=== PATIENT | male | born 1985 | race Caucasian/White ===

== ENCOUNTER 2018-08-29 08:37 | Inpatient (IN) | payer OTHER ==
[2018-08-29 11:07] VITALS: BMI 30.3
--- NOTE | 2018-08-29 14:26 | HP ---
CIWA Score Nausea/Vomitin Muscle Tremors: 2 Anxiety: 4-Mod. Anxious/Guarded Agitation: 0-Normal Activity Paroxysmal Sweats: 2 Orientation: 0-Oriented Tacttile Disturbances: 1-Very Mild Itch/Numbness Auditory Disturbances: 0-None Visual Disturbances: 0-None Headache: 2-Mild CIWA-Ar Total Score: 14 - Admission Criteria OASAS Guidelines: Admission for Medically Managed Detox: Requires at least one of the followin. CIWA greater than 12 2. Seizures within the past 24 hours 3. Delirium tremens within the past 24 hours 4. Hallucinations within the past 24 hours 5. Acute intervention needed for co occurring medical disorder 6. Acute intervention needed for co occurring psychiatric disorder 7. Severe withdrawal that cannot be handled at a lower level of care (continued vomiting, continued diarrhea, abnormal vital signs) requiring intravenous medication and/or fluids 8. Patient presents the following: CIWA greater than 12, Seizures, delirium tremens or hallucinations in the past 12 hours Admission Criteria Met: Admission criteria met Admission ROS S - HPI Chief Complaint: xanax withdrawal symptoms Allergies/Adverse Reactions: Allergies Allergy/AdvReac Type Severity Reaction Status Date / Time No Known Allergies Allergy Verified 08/29/18 10:44 History of Present Illness: Patient is a 33 yo male with hx of polysubstance use is here seeking inpatient detox d/t benzo withdrawal symptoms, patient reports he was evaluated last night at [facility] for chest pain and anxiety after consuming crystal meth (intravenous) and xanax, was given one dose of librium. Patient attempted to detox at [facility] left AMA on 08/20/18. [facility] on methadone maintenance 140 mg qd, last medicated 08/20/18 at [facility] in AM ( D/ T missed doses will start methadone 80 mg today). PMHX: metabolic encephalitis four months ago. Psych: depression and anxiety. Reports reports hx of benzo withdrawal seizure with last episode eight years ago. Exam Limitations: No Limitations - Ebola screening Have you traveled outside of the country in the last 21 days: No (N) Have you had contact with anyone from an Ebola affected area: No Do you have a fever: No - Review of Systems Constitutional: Chills, Diaphoresis, Loss of Appetite, Changes in sleep, Unintentional Wgt. Loss EENT: reports: No Symptoms Reported Respiratory: reports: No Symptoms reported Cardiac: reports: See HPI GI: reports: Diarrhea, Nausea, Poor Appetite, Vomiting : reports: No Symptoms Reported Musculoskeletal: reports: Back Pain Integumentary: reports: No Symptoms Reported Neuro: reports: Headache Endocrine: reports: No Symptoms Reported Hematology: reports: No Symptoms Reported Psychiatric: reports: Orientated x3, Anxious Other Systems: Reviewed and Negative Patient History - Patient Medical History Hx Anemia: No Hx Asthma: No Hx Chronic Obstructive Pulmonary Disease (COPD): No Hx Cancer: No Hx Cardiac Disorders: No Hx Congestive Heart Failure: No Hx Hypertension: No Hx Hypercholesterolemia: No Hx Pacemaker: No HX Cerebrovascular Accident: No Hx Seizures: Yes (8 years ago ) Hx Dementia: No Hx Diabetes: No Hx Gastrointestinal Disorders: No Hx Liver Disease: Yes (elevated liver enzymes, metabolic encephalitis four months ago ) Hx Genitourinary Disorders: No Hx Sexually Transmitted Disorders: No Hx Renal Disease (ESRD): No Hx Thyroid Disease: No Hx Human Immunodeficiency Virus (HIV): No Hx Hepatitis C: No Hx Depression: Yes Hx Suicide Attempt: No Hx Bipolar Disorder: No Hx Schizophrenia: No - Patient Surgical History Past Surgical History: Yes Other Surgical History: 2011 ligament x, 2014 nasal sx - PPD History Previous Implant?: No Documented Results: Negative w/o proof PPD to be Administered?: Yes - Smoking Cessation Smoking history: Never smoked Have you smoked in the past 12 months: No Aproximately how many cigarettes per day: 0 If you are a former smoker, when did you quit?: 2010 Hx Chewing Tobacco Use: No Initiated information on smoking cessation: No - Substance & Tx. History Hx Alcohol Use: Yes Hx Substance Use: Yes Substance Use Type: Tranquilizers Hx Substance Use Treatment: Yes ([facility] on ) - Substances abused Heroin Substance route: Injection Frequency: Daily Amount used: 5-10 bags per day Age of first use: 21 Date of last use: 08/26/18 Alprazolam (Xanax) Substance route: Oral Frequency: Daily Amount used: 6-8 mg/day Age of first use: 21 Date of last use: 08/27/18 Crystal meth Substance route: Injection Frequency: Daily Amount used: 1 gram Age of first use: 33 Date of last use: 08/28/18 Alcohol Substance route: Oral Frequency: 1-2 times per week Amount used: 2 24 oz beers Age of first use: 18 Date of last use: 08/22/18 Family Disease History - Family Disease History Family History: Denies Admission Physical Exam [facility] - Vital Signs Vital Signs: Vital Signs - 24 hr 08/29/18 10:53 Temperature 97.5 F L Pulse Rate 108 H Respiratory 20 Rate Blood Pressure 121/79 - Physical General Appearance: Yes: Disheveled, Mild Distress, Sweating, Anxious HEENTM: Yes: EOMI, Hearing grossly Normal, Normal ENT Inspection, Normocephalic , Normal Voice, LEXI, Pharynx Normal, Tm's normal, Other (dry mucous membranes) Respiratory: Yes: Chest Non-Tender, Lungs Clear, Normal Breath Sounds, No Respiratory Distress, No Accessory Muscle Use Neck: Yes: Within Normal Limits Breast: Yes: Breast Exam Deferred Cardiology: Yes: Regular Rhythm, Regular Rate Abdominal: Yes: Normal Bowel Sounds, Non Tender, Flat, Soft Genitourinary: Yes: Within Normal Limits Back: Yes: Normal Inspection Musculoskeletal: Yes: full range of Motion, Gait Steady, Pelvis Stable Extremities: Yes: Normal Capillary Refill, Normal Inspection, Normal Range of Motion, Non-Tender Neurological: Yes: 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, Fully Oriented, Alert, Motor Strength 5/5, Depressed Affect Integumentary: Yes: Warm, Erythema (right arm upper arm), Diaphoresis, Track Morris Lymphatic: Yes: Within Normal Limits - Diagnostic (1) Cellulitis of right upper arm Current Visit: Yes Status: Acute (2) Opioid dependence on agonist therapy Current Visit: Yes Status: Chronic (3) Alcohol abuse Current Visit: Yes Status: Acute (4) Sedative, hypnotic or anxiolytic dependence with withdrawal, uncomplicated Current Visit: Yes Status: Acute (5) Anxiety Current Visit: Yes Status: Acute (6) Elevated liver enzymes Current Visit: Yes Status: Acute Cleared for Admission S - Detox or Rehab [facility] Level of Care: Medically Managed ([facility]) Inpatient Rehab Admission - Rehab Decision to Admit Inpatient rehab admission?: No
[2018-08-29] MEDS ORDERED: ACETAMINOPHEN 325 MG TABLET (FP) PO PRN ×2 (14:35)
[2018-08-29] MEDS ORDERED: BISMUTH SUBSALICYLATE 262 MG/15 ML BTL PO PRN (14:35)
[2018-08-29] MEDS ORDERED: MAG HYDROX/AL HYDROX/SIMETH 30 ML UNIT-DOSE CUP PO PRN (14:35)
[2018-08-29] MEDS ORDERED: MAGNESIUM CITRATE 300 ML BOTTLE PO PRN (14:35)
[2018-08-29] MEDS ORDERED: METHOCARBAMOL 500 MG TABLET PO PRN (14:35)
[2018-08-29] MEDS ORDERED: IBUPROFEN 400 MG TABLET (FP) PO PRN (14:35)
[2018-08-29] MEDS ORDERED: MAGNESIUM HYDROX 2400MG/30ML ORAL SUSPENSION 30 ML CUP PO PRN (14:35)
[2018-08-29] MEDS ORDERED: LORazepam 1 MG TABLET PO PRN (14:38)
[2018-08-29] MEDS ORDERED: METHADONE HCL 40 MG DISPERSABLE TABLET PO ONE (15:25)
[2018-08-29] MEDS: BACITRACIN 0.9 GM PACKET TP SCH (15:36)
[2018-08-29 16:42] LABS: HEMATOCRIT 47.1 % (35.4-49); HEMOGLOBIN 16.1 GM/dL (11.7-16.9); MCH 29.4 pg (25.7-33.7); MCHC 34.1 g/dl (32.0-35.9); MEAN CELL VOLUME 86.1 fl (80-96); MEAN PLT VOLUME 7.7 fl (7.5-11.1); RBC 5.47 M/mm3 (4.00-5.60); RDW 13.5 % (11.9-15.9); WHITE BLOOD COUNT 9.4 K/mm3 (4.0-10.0)
[2018-08-29 16:48] LABS: ALBUMIN 4.4 g/dl (3.4-5.0); BILIRUBIN,TOTAL 1.1 mg/dL (0.2-1); BLOOD UREA NITROGEN 13.3 mg/dL (7-18); CALCIUM 9.1 mg/dL (8.5-10.1); POTASSIUM 3.8 mmol/L (3.5-5.1); TOT PROT 7.9 g/dl (6.4-8.2)
[2018-08-29] MEDS: LORazepam 2 MG TABLET PO SCH ×2 (16:54→22:07)
[2018-08-29] MEDS: CEPHALEXIN MONOHYDRATE 250 MG CAPSULE (FP) PO SCH ×2 (17:28→23:18)
[2018-08-29] MEDS: MENTHOL/PHENOL 1 EACH UD MM PRN (17:51)
[2018-08-29 18:33] LABS: PLATELET COUNT 281 K/MM3 (134-434)
[2018-08-29] MEDS: THIAMINE HCL 100 MG TABLET (FP) PO SCH (22:07)
[2018-08-29] MEDS: MELATONIN 5 MG TABLETS PO PRN (22:07)
[2018-08-30] MEDS ORDERED: METHADONE HCL 10 MG TABLET ONE ×2 (04:40→09:59)
[2018-08-30] MEDS ORDERED: METHADONE HCL 40 MG DISPERSABLE TABLET ONE ×2 (04:41→09:59)
[2018-08-30] MEDS: CEPHALEXIN MONOHYDRATE 250 MG CAPSULE (FP) PO SCH ×4 (05:12→23:21)
[2018-08-30] MEDS: LORazepam 2 MG TABLET PO SCH ×2 (05:12→10:02)
[2018-08-30] MEDS ORDERED: METHADONE HCL 10 MG TABLET PO ONE ×2 (06:00→08:54)
[2018-08-30] MEDS ORDERED: METHADONE 80 MG, METHADONE 10 MG PO SCH (06:00)
[2018-08-30] MEDS: BACITRACIN 0.9 GM PACKET TP SCH (10:02)
[2018-08-30] MEDS: PRENATAL VITAMINS W/ FOLIC ACID TABLET (FP) PO SCH (10:02)
--- NOTE | 2018-08-30 10:14 | PN ---
S CIWA - CIWA Score Nausea/Vomitin-No Nausea/No Vomiting Muscle Tremors: 2 Anxiety: 2 Agitation: 2 Paroxysmal Sweats: 3 Orientation: 0-Oriented Tacttile Disturbances: 0-None Auditory Disturbances: 0-None Visual Disturbances: 0-None Headache: 2-Mild CIWA-Ar Total Score: 11 S Progress Note (SOAP) Subjective: c/o headache, sweats, anxiety, and shakes. Objective: 08/30/18 10:13 Vital Signs 08/30/18 08/30/18 08/30/18 03:30 06:09 06:30 Temperature 97.8 F Pulse Rate 83 Respiratory 18 18 18 Rate Blood Pressure 106/60 08/30/18 09:25 Temperature 97.5 F L Pulse Rate 71 Respiratory 18 Rate Blood Pressure 112/68 Lab Results WBC 9.4 K/mm3 (4.0-10.0) 08/29/18 14:30 RBC 5.47 M/mm3 (4.00-5.60) 08/29/18 14:30 Hgb 16.1 GM/dL (11.7-16.9) 08/29/18 14:30 Hct 47.1 % (35.4-49) 08/29/18 14:30 MCV 86.1 fl (80-96) 08/29/18 14:30 MCHC 34.1 g/dl (32.0-35.9) 08/29/18 14:30 RDW 13.5 % (11.9-15.9) 08/29/18 14:30 Plt Count 281 K/MM3 (134-434) 08/29/18 14:30 Sodium 140 mmol/L (136-145) 08/29/18 14:30 Potassium 3.8 mmol/L (3.5-5.1) 08/29/18 14:30 Chloride 105 mmol/L (98-107) 08/29/18 14:30 Carbon Dioxide 29 mmol/L (21-32) 08/29/18 14:30 Anion Gap 6 MMOL/L (8-16) L 08/29/18 14:30 BUN 13.3 mg/dL (7-18) 08/29/18 14:30 Creatinine 1.0 mg/dL (0.55-1.3) 08/29/18 14:30 Random Glucose 84 mg/dL (74-106) 08/29/18 14:30 Calcium 9.1 mg/dL (8.5-10.1) 08/29/18 14:30 Labs noted. Assessment: 08/30/18 10:14 AOX3, in no acute distress Full ROM, ambulating in the unit. Withdrawal symptoms. Plan: continue detox. increase hydration.
[2018-08-30] MEDS: LORazepam 1 MG TABLET PO SCH ×2 (17:30→22:01)
--- NOTE | 2018-08-30 18:22 | CONSULT ---
[facility] Psychiatric Consult - Data Date of interview: 08/30/18 Admission source: [facility] Identifying data: First admission to [facility] for this 33 y/o male self-referred for detoxification (methamphetamine, opioid, benzodiazepine). Interviewed at [address] [place] [address]. Patient is single, a father of two, homeless, unemplloyed and reportedly deprived of income. Substance Abuse History: Patient sedated. Details in [facility] report : Smoking history: Never smoked. Have you smoked in the past 12 months: No. Aproximately how many cigarettes per day: 0. If you are a former smoker, when did you quit?: 2010. Hx Chewing Tobacco Use: No. Initiated information on smoking cessation: No. - Substance & Tx. History. Hx Alcohol Use: Yes. Hx Substance Use: Yes. Substance Use Type: Tranquilizers. Hx Substance Use Treatment: Yes ([facility] [place] on ). - Substances abused. Heroin. Substance route: Injection. Frequency: Daily. Amount used: 5-10 bags per day. Age of first use: 21. Date of last use: 08/26/18. Alprazolam ( Xanax). Substance route: Oral. Frequency: Daily. Amount used: 6-8 mg/day. Age of first use: 21. Date of last use: 08/27/18. Crystal meth. Substance route: Injection. Frequency: Daily. Amount used: 1 gram. Age of first use: 33. Date of last use: 08/28/18. Alcohol. Substance route: Oral. Frequency : 1-2 times per week. Amount used: 2 24 oz beers. Age of first use: 18. Date of last use: 08/22/18 Medical History: Patient sedated. History taken from chart : elevated liver enzymes, recent antecedent of metabolic encephalitis (four months ago), remote history of seizures (age [age]) and past surgery for perforated nasal septum ( 2014). Psychiatric History: Patient is drowsy and slurred. Mr Abreu insisted to talk to psychiatrist about his medications (wellbutrin XL + gabapentin). He sees a psychiatrist, Dr Michel ([phone]) at a clinic in [place]. Currently maintained on methadone (140 mg/day) at the [facility] program in [facility]. Patient denies history of suicide attempts. Physical/Sexual Abuse/Trauma History: Not discussed. Additional Comment: No toxicology available for review. Mental Status Exam - Mental Status Exam Alert and Oriented to: Place, Person Cognitive Function: Impaired (sedated due to medications) Patient Appearance: Unkempt, Disheveled (overweight, disheveled) Mood: Nervous, Withdrawn, Anxious Affect: Mood Congruent, Constricted Patient Behavior: Sedated (mildly sedated, somnolent during interview ; needs prompting), Fatigued Speech Pattern: Delayed, Slurred, Garbled (at times ) Voice Loudness: Moderately Soft/Quiet Thought Process: Disoriented Thought Disorder: Not Present Hallucinations: Denies Suicidal Ideation: Denies Homicidal Ideation: Denies Insight/Judgement: Poor Sleep: Well Gait/Station: Other (unsteady) Psychiatric Findings - Problem List ([place] 1, 2,3) (1) Sedated due to medication Current Visit: Yes Status: Acute (2) Sedative, hypnotic or anxiolytic dependence with withdrawal, uncomplicated Current Visit: Yes Status: Acute (3) Opioid dependence on agonist therapy Current Visit: Yes Status: Chronic (4) Alcohol abuse Current Visit: Yes Status: Chronic - Initial Treatment Plan Initial Treatment Plan: Falls precautions. Will hold wellbutrin and gabapentin. Detoxification in progress.
[2018-08-30] MEDS: MENTHOL/PHENOL 1 EACH UD MM PRN (20:43)
[2018-08-30] MEDS: THIAMINE HCL 100 MG TABLET (FP) PO SCH (22:01)
[2018-08-30] MEDS: MELATONIN 5 MG TABLETS PO PRN (22:01)
[2018-08-31] MEDS ORDERED: METHADONE HCL 40 MG DISPERSABLE TABLET ONE (04:08)
[2018-08-31] MEDS ORDERED: METHADONE HCL 10 MG TABLET ONE (04:08)
[2018-08-31] MEDS: LORazepam 1 MG TABLET PO SCH ×2 (05:41→10:08)
[2018-08-31] MEDS: CEPHALEXIN MONOHYDRATE 250 MG CAPSULE (FP) PO SCH ×4 (05:41→23:06)
[2018-08-31] MEDS ORDERED: METHADONE HCL 10 MG TABLET PO ONE (06:00)
[2018-08-31] MEDS ORDERED: METHADONE 20 MG, METHADONE 80 MG PO ONE (06:00)
[2018-08-31] MEDS: BACITRACIN 0.9 GM PACKET TP SCH (10:07)
[2018-08-31] MEDS: PRENATAL VITAMINS W/ FOLIC ACID TABLET (FP) PO SCH (10:07)
--- NOTE | 2018-08-31 10:51 | PN ---
S CIWA - CIWA Score Nausea/Vomitin Muscle Tremors: 2 Anxiety: 2 Agitation: 2 Paroxysmal Sweats: 1-Minimal Palms Moist Orientation: 0-Oriented Tacttile Disturbances: 1-Very Mild Itch/Numbness Auditory Disturbances: 2-Mild Harshness/Frighten Visual Disturbances: 0-None Headache: 2-Mild CIWA-Ar Total Score: 14 [facility] Progress Note (SOAP) Subjective: co poor sleep anxiety and some shakiness Objective: 08/31/18 10:50 Laboratory Tests 08/29/18 08/29/18 08/29/18 14:30 14:30 14:30 WBC 9.4 RBC 5.47 Hgb 16.1 Hct 47.1 MCV 86.1 MCH 29.4 MCHC 34.1 RDW 13.5 Plt Count 281 MPV 7.7 Sodium 140 Potassium 3.8 Chloride 105 Carbon Dioxide 29 Anion Gap 6 L BUN 13.3 Creatinine 1.0 Est GFR (CKD-EPI)AfAm 114.11 Est GFR (CKD-EPI)NonAf 98.45 Random Glucose 84 Calcium 9.1 Total Bilirubin 1.1 H AST 20 ALT 41 Alkaline Phosphatase 113 Total Protein 7.9 Albumin 4.4 RPR Titer Nonreactive Vital Signs - 24 hr 08/30/18 08/30/18 08/30/18 13:22 17:38 21:24 Temperature 97.1 F L 96.9 F L 97.0 F L Pulse Rate 52 L 63 65 Respiratory 18 16 16 Rate Blood Pressure 128/82 127/90 109/74 08/31/18 08/31/18 08/31/18 03:30 06:27 06:30 Temperature 96.8 F L Pulse Rate Respiratory 18 67 H 18 Rate Blood Pressure 101/58 L 08/31/18 09:14 Temperature 97.3 F L Pulse Rate 77 Respiratory 18 Rate Blood Pressure 111/72 vs and labs noted Assessment: 08/31/18 10:51 alcohol dependence with withdrawal Plan: continue detox protocol cont adjuncts discussed symptom prn management
--- NOTE | 2018-08-31 15:01 | CONSULT ---
[facility] Psychiatric Consult - Data Date of interview: 08/31/18 ([facility]) Admission source: [facility] Identifying data: Mr Abreu is a 33 years old single , father of 2 children, unemployed with no source of income, homeless seeking alcohol, opioid , benzo and amphetamine Substance Abuse History: Reports history of alcohol, heroin, xanax and crystal meth use. Refer to addiction counselor's note for further information Medical History: Significant for history of withdrawal seizure, surgeries for fracture of nose and repair of ligament left shoulder. Patient is on methadone 140 mg/day from [facility]. Psychiatric History: Reports that his first psychiatric contact was in 2000 when his mother . Claiims he saw a psychiatrist, diagnosed with depression and anxiety and started on Xanax. Reports that he took medication for 5 years. Currently he is prescribed psychotropic medications by Dr Michel, a private psychiatrist in [place] that he has been seeing for the last 7 years. He is currently prescribed Wellbutrin XL 450 mg/day, Effexoe ER 75 mg/day, Gabapentin 800 mg/qid, Vistaril 50 mg/hs and Clonidine 0.1 mg/bid. Reports one previous psychiatric hospitalization at [facility] in [place]. Denies previous suicidal attempt. At present, denies depressive and anxiety symptoms. S /H ideations. However, reports sleeping poorly Physical/Sexual Abuse/Trauma History: Denies history of emotional, physical and sexual abuse as well as DV relationship. No service Additional Comment: Reports history of 3 previous arrests including one felony convictiom. Reports being on probation Mental Status Exam - Mental Status Exam Alert and Oriented to: Time, Place, Person Cognitive Function: Fair Patient Appearance: Well Groomed Mood: Hopeful, Euthymic Patient Behavior: Cooperative Speech Pattern: Clear Voice Loudness: Normal Thought Process: Intact, Goal Oriented Hallucinations: Denies Suicidal Ideation: Denies Homicidal Ideation: Denies Insight/Judgement: Poor Sleep: Poorly Appetite: Good Muscle strength/Tone: Normal Gait/Station: Normal Psychiatric Findings - Problem List ([place] 1, 2,3) (1) Anxiety disorder Current Visit: Yes Status: Chronic (2) Substance-induced sleep disorder Current Visit: Yes Status: Acute (3) Sedative, hypnotic or anxiolytic dependence with withdrawal, uncomplicated Current Visit: Yes Status: Acute (4) Amphetamine dependence Current Visit: Yes Status: Acute (5) Alcohol abuse Current Visit: Yes Status: Acute (6) Opioid dependence on agonist therapy Current Visit: Yes Status: Chronic (7) Drug withdrawal seizure Current Visit: Yes Status: Acute - Initial Treatment Plan Initial Treatment Plan: 1) Continue Wellbutrin XL 450 mg po daily and Gabapentin 800 mg po QID. 2) Start Vistaril 50 mg po HS prn for insmonia
[2018-08-31] MEDS ORDERED: hydrOXYzine PAMOATE 50 MG CAPSULE (FP) PO PRN (15:11)
--- NOTE | 2018-08-31 16:57 | EKG ---
Test Reason : Blood Pressure : / mmHG Vent. Rate : 084 BPM Atrial Rate : 084 BPM P-R Int : 154 ms QRS Dur : 104 ms QT Int : 380 ms P-R-T Axes : 050 -20 025 degrees QTc Int : 449 ms NORMAL SINUS RHYTHM NORMAL ECG NO PREVIOUS ECGS AVAILABLE Confirmed by MD AMRIAN, DENNIS ([id number]) on 08/31/2018 4:57:09 PM Referred By: Confirmed By:DENNIS FONSECA MD
[2018-08-31] MEDS ORDERED: LORazepam 0.5 MG TABLET PO PRN (17:00)
[2018-08-31] MEDS: LORazepam 0.5 MG TABLET PO SCH ×2 (17:17→22:34)
[2018-08-31] MEDS: GABAPENTIN 400 MG CAPSULE (FP) PO SCH ×2 (17:17→22:34)
[2018-08-31 22:33] LABS: PH,URINE 5.5 (5.0-8.0); URINE APPEARANCE TURBID; URINE BILIRUBIN NEGATIVE (NEGATIVE); URINE COLOR DK YELLOW; URINE GLUCOSE (UA) NEGATIVE (NEGATIVE); URINE KETONE TRACE (NEGATIVE); URINE LEUK ESTERASE NEGATIVE (NEGATIVE); URINE NITRITE NEGATIVE (NEGATIVE); URINE PROTEIN NEGATIVE (NEGATIVE)
[2018-08-31] MEDS: MELATONIN 5 MG TABLETS PO PRN (22:34)
[2018-08-31] MEDS: THIAMINE HCL 100 MG TABLET (FP) PO SCH (22:34)
[2018-09-01] MEDS ORDERED: METHADONE HCL 10 MG TABLET ONE (04:55)
[2018-09-01] MEDS ORDERED: METHADONE HCL 40 MG DISPERSABLE TABLET ONE (04:55)
[2018-09-01] MEDS: CEPHALEXIN MONOHYDRATE 250 MG CAPSULE (FP) PO SCH (05:16)
[2018-09-01] MEDS: LORazepam 0.5 MG TABLET PO SCH (05:16)
[2018-09-01] MEDS ORDERED: METHADONE PO SCH (06:00)
[2018-09-01] MEDS ORDERED: METHADONE HCL 10 MG TABLET PO SCH (06:00)
[2018-09-01] MEDS ORDERED: NICOTINE POLACRILEX 2 MG GUM BUC PRN (09:00)
[2018-09-01 09:18] VITALS: BP 127/79; PULSE 78; TEMP 98.8
[2018-09-01] MEDS: BACITRACIN 0.9 GM PACKET TP SCH (10:33)
[2018-09-01] MEDS: GABAPENTIN 400 MG CAPSULE (FP) PO SCH (10:33)
[2018-09-01] MEDS: PRENATAL VITAMINS W/ FOLIC ACID TABLET (FP) PO SCH (10:35)
--- NOTE | 2018-09-01 16:47 | DS ---
[facility] Detox Discharge Summary Admission Date: 08/29/18 Discharge Date: 09/01/18 - History Present History: Alcohol Dependence, Opioid Dependence, Sedative Dependence, MMTP Additional Comments: PATIENT GOING TO [facility] ([place], [place]) FOR AFTERCARE. PATIENT WAS DISCHARGED FORM DETOX UNIT IN STABLE MEDICAL CONDITION. Pertinent Past History: Anxiety, Depression, History Of Elevated Liver Enzymes, Cellulitis Of Right arm , M.M.T.P., History Of Metabolic Encephalitis, History Of Seizure Due To Benzodiazepine withdrawal. - Physical Exam Results Vital Signs: Vital Signs Temperature 98.8 F 09/01/18 09:18 Pulse Rate 78 09/01/18 09:18 Respiratory Rate 20 09/01/18 09:18 Blood Pressure 127/79 09/01/18 09:18 O2 Sat by Pulse Oximetry (%) Pertinent Admission Physical Exam Findings: WITHDRAWAL SYMPTOMS. Laboratory Tests 08/29/18 08/29/18 08/29/18 14:30 14:30 14:30 WBC 9.4 RBC 5.47 Hgb 16.1 Hct 47.1 MCV 86.1 MCH 29.4 MCHC 34.1 RDW 13.5 Plt Count 281 MPV 7.7 Sodium 140 Potassium 3.8 Chloride 105 Carbon Dioxide 29 Anion Gap 6 L BUN 13.3 Creatinine 1.0 Est GFR (CKD-EPI)AfAm 114.11 Est GFR (CKD-EPI)NonAf 98.45 Random Glucose 84 Calcium 9.1 Total Bilirubin 1.1 H AST 20 ALT 41 Alkaline Phosphatase 113 Total Protein 7.9 Albumin 4.4 Urine Color Urine Appearance Urine pH Ur Specific [place] Urine Protein Urine Glucose (UA) Urine Ketones Urine Blood Urine Nitrite Urine Bilirubin Urine Urobilinogen Ur Leukocyte Esterase RPR Titer Nonreactive 08/31/18 16:00 WBC RBC Hgb Hct MCV MCH MCHC RDW Plt Count MPV Sodium Potassium Chloride Carbon Dioxide Anion Gap BUN Creatinine Est GFR (CKD-EPI)AfAm Est GFR (CKD-EPI)NonAf Random Glucose Calcium Total Bilirubin AST ALT Alkaline Phosphatase Total Protein Albumin Urine Color Dk yellow Urine Appearance Turbid Urine pH 5.5 Ur Specific [place] 1.034 Urine Protein Negative Urine Glucose (UA) Negative Urine Ketones Trace H Urine Blood Negative Urine Nitrite Negative Urine Bilirubin Negative Urine Urobilinogen 1.0 Ur Leukocyte Esterase Negative RPR Titer LABS NOTED. - Treatment Hospital Course: Detox Protocol Followed, Detoxed Safely, Responded well, Discharged Condition Good, Rehab Referral Accepted Patient has Accepted a Rehab Referral to: [facility] ([place], [place]). - Medication Discharge Medications: Ambulatory Orders Gabapentin mg PO 08/29/18 Wellbutrin Xl - 08/29/18 - Diagnosis (1) Alcohol abuse Status: Acute (2) Anxiety Status: Acute (3) Cellulitis of right upper arm Status: Acute (4) Elevated liver enzymes Status: Acute (5) Sedative, hypnotic or anxiolytic dependence with withdrawal, uncomplicated Status: Acute (6) Opioid dependence on agonist therapy Status: Chronic (7) Sedated due to medication Status: Acute - AMA Did Patient Leave Against Medical Advice: No
== END 2018-09-01 12:46 | disposition home or self-care (01) | DRG 773 ==
LOC: YASAS 08:37 → Y3N 14:31
PROVIDERS: ADMIT Surgery; ATTEND Surgery
PROC: HZ2ZZZZ Detoxification Services for Substance Abuse Treatment (ICD-10-PCS; principal; 2018-08-29)
DX: F13.230 Sedative, hypnotic or anxiolytic dependence with withdrawal, uncomplicated (principal); F11.20 Opioid dependence, uncomplicated; F15.20 Other stimulant dependence, uncomplicated; F10.10 Alcohol abuse, uncomplicated; F41.9 Anxiety disorder, unspecified; F19.282 Other psychoactive substance dependence with psychoactive substance-induced sleep disorder; R94.5 Abnormal results of liver function studies; L03.113 Cellulitis of right upper limb; Z86.69 Personal history of other diseases of the nervous system and sense organs
CPT/HCPCS: 36415; 80053; 81003; 85027; 86593; 86803; 93005; 93010

== ENCOUNTER 2018-10-21 12:45 | Inpatient (IN) | payer OTHER ==
[2018-10-21 13:13] VITALS: BMI 29.7
--- NOTE | 2018-10-21 14:46 | HP ---
CIWA Score Nausea/Vomitin-Mild Nausea/No Vomiting Muscle Tremors: 3 Anxiety: 3 Agitation: 3 Paroxysmal Sweats: 3 Orientation: 0-Oriented Tacttile Disturbances: 0-None Auditory Disturbances: 0-None Visual Disturbances: 0-None Headache: 0-None Present CIWA-Ar Total Score: 13 - Admission Criteria OASAS Guidelines: Admission for Medically Managed Detox: Requires at least one of the followin. CIWA greater than 12 2. Seizures within the past 24 hours 3. Delirium tremens within the past 24 hours 4. Hallucinations within the past 24 hours 5. Acute intervention needed for co occurring medical disorder 6. Acute intervention needed for co occurring psychiatric disorder 7. Severe withdrawal that cannot be handled at a lower level of care (continued vomiting, continued diarrhea, abnormal vital signs) requiring intravenous medication and/or fluids 8. Admission ROS [facility] Chief Complaint: xanax withdrawal Allergies/Adverse Reactions: Allergies Allergy/AdvReac Type Severity Reaction Status Date / Time No Known Allergies Allergy Verified 10/21/18 12:57 History of Present Illness: 33 yo with h/o anxiety and opioid use disorder, noted to be stumbling in the streets on his way to [facility] for detox/rehab. He was seen by the police and taken to [facility]. There he requested detox for benzo use disorder. Pt was referred here. Pt was referred to [facility] by mail officer. Pt lives with and 2 kids in [place] Pt has PCP and is good with current medications Xanax- pt has been using this since age 16, first prescribed when his mother from opioid overdose In methadone program 90mg/day DUR- no controlled substances - Ebola screening Have you traveled outside of the country in the last 21 days: No Have you had contact with anyone from an Ebola affected area: No Do you have a fever: No - Review of Systems Constitutional: No Symptoms Reported EENT: reports: No Symptoms Reported Respiratory: reports: No Symptoms reported Cardiac: reports: No Symptoms Reported GI: reports: No Symptoms Reported : reports: No Symptoms Reported Musculoskeletal: reports: No Symptoms Reported Integumentary: reports: No Symptoms Reported Neuro: reports: No Symptoms reported Endocrine: reports: No Symptoms Reported Hematology: reports: No Symptoms Reported Psychiatric: reports: No Sypmtoms Reported Other Systems: Reviewed and Negative Patient History - Patient Medical History Hx Anemia: No Hx Asthma: No Hx Chronic Obstructive Pulmonary Disease (COPD): No Hx Cancer: No Hx Cardiac Disorders: No Hx Congestive Heart Failure: No Hx Hypertension: No Hx Hypercholesterolemia: No Hx Pacemaker: No HX Cerebrovascular Accident: No Hx Seizures: Yes (8 years ago ) Hx Dementia: No Hx Diabetes: No Hx Gastrointestinal Disorders: No Hx Liver Disease: Yes (elevated liver enzymes, metabolic encephalitis four months ago ) Hx Genitourinary Disorders: No Hx Sexually Transmitted Disorders: No Hx Renal Disease (ESRD): No Hx Thyroid Disease: No Hx Human Immunodeficiency Virus (HIV): No Hx Hepatitis C: Yes (but told he as cured) Hx Depression: Yes Hx Suicide Attempt: No Hx Bipolar Disorder: No Hx Schizophrenia: No - Patient Surgical History Past Surgical History: Yes Hx Appendectomy: Yes (2005) Hx Orthopedic Surgery: Yes (L SHOULDER SX IN 2011) Other Surgical History: 2011 ligament x, 2014 nasal sx - PPD History Date: 08/31/18 - Smoking Cessation Smoking history: Never smoked Have you smoked in the past 12 months: No Aproximately how many cigarettes per day: 0 If you are a former smoker, when did you quit?: 2010 Hx Chewing Tobacco Use: No Initiated information on smoking cessation: No 'Breaking Loose' booklet given: 10/21/18 - Substance & Tx. History Hx Substance Use: Yes Substance Use Type: Heroin, Opiates - Substances abused Heroin Substance route: Injection Frequency: Daily Amount used: 5-10 bags per day Age of first use: 21 Date of last use: 08/26/18 Alprazolam (Xanax) Substance route: Oral Frequency: Daily Amount used: 5-10 (2mg)/day Age of first use: 16 Date of last use: 10/19/18 Crystal meth Other (specify): adderall Frequency: Daily Date of last use: 08/28/18 Alcohol Substance route: Oral Frequency: 1-2 times per week Amount used: 2 24 oz beers Age of first use: 18 Date of last use: 08/22/18 Family Disease History - Family Disease History Family Disease History: Other: Mother (opioid) Admission Physical Exam [facility] - Vital Signs Vital Signs: Vital Signs - 24 hr 10/21/18 10/21/18 13:07 14:04 Temperature 68.2 F L 68.2 F L Pulse Rate 74 74 Respiratory 18 18 Rate Blood Pressure 128/88 128/88 - Physical General Appearance: Yes: Within Normal Limits, Mild Distress HEENTM: Yes: Within Normal Limits, EOMI, Hearing grossly Normal, LEXI Respiratory: Yes: Within Normal Limits, Chest Non-Tender, Lungs Clear Neck: Yes: Within Normal Limits, No masses,lesions,Nodules Cardiology: Yes: Within Normal Limits Abdominal: Yes: Within Normal Limits Genitourinary: Yes: Within Normal Limits Back: Yes: Within Normal Limits Musculoskeletal: Yes: Within Normal Limits Extremities: Yes: Within Normal Limits Neurological: Yes: Within Normal Limits, yard specialist II-XII NML intact, Fully Oriented Integumentary: Yes: Within Normal Limits, Normal Color Lymphatic: Yes: Within Normal Limits - Diagnostic (1) Alcohol abuse Current Visit: No Status: Acute (2) Amphetamine dependence Current Visit: No Status: Acute (3) Anxiety Current Visit: No Status: Acute (4) Sedative, hypnotic or anxiolytic dependence with withdrawal, uncomplicated Current Visit: No Status: Acute (5) Opioid dependence on agonist therapy Current Visit: No Status: Chronic Breathalyzer - Breathalyzer Breathalyzer: 0 Urine Drug Screen - Test Device Lot number: [id number] Expiration date: 07/15/20 - Control Is test valid?: Yes - Results Drug screen NEGATIVE: No Urine drug screen results: MET-Methamphetamine, AMP-Amphetamines, FEN-Fentanyl, MOP-Opiates, OXY-Oxycodone, MTD-Methadone, BZO-Benzodiazepines, MDMA-Ecstasy Inpatient Rehab Admission - Rehab Decision to Admit Inpatient rehab admission?: No
[2018-10-21] MEDS ORDERED: MAG HYDROX/AL HYDROX/SIMETH 30 ML UNIT-DOSE CUP PO PRN (15:17)
[2018-10-21] MEDS ORDERED: BISMUTH SUBSALICYLATE 524 MG/30 ML UD PO PRN (15:17)
[2018-10-21] MEDS ORDERED: ONDANSETRON *ODT* 4 MG TABLET SL PRN (15:17)
[2018-10-21] MEDS ORDERED: MENTHOL/PHENOL 1 EACH UD MM PRN (15:17)
[2018-10-21] MEDS ORDERED: MAGNESIUM HYDROX 2400MG/30ML ORAL SUSPENSION 30 ML CUP PO PRN (15:17)
[2018-10-21] MEDS ORDERED: ACETAMINOPHEN 325 MG TABLET (FP) PO PRN ×2 (15:17)
[2018-10-21] MEDS ORDERED: IBUPROFEN 400 MG TABLET (FP) PO PRN (15:17)
[2018-10-21] MEDS ORDERED: METHOCARBAMOL 500 MG TABLET PO PRN (15:17)
[2018-10-21] MEDS ORDERED: MAGNESIUM CITRATE 300 ML BOTTLE PO PRN (15:17)
[2018-10-21] MEDS ORDERED: hydrOXYzine PAMOATE 25 MG CAPSULE (FP) PO PRN (15:17)
[2018-10-21] MEDS ORDERED: diazePAM 5 MG TABLET PO ONE (16:00)
[2018-10-21] MEDS: GABAPENTIN 400 MG CAPSULE (FP) PO SCH ×2 (18:27→22:17)
[2018-10-21] MEDS: diazePAM 5 MG TABLET PO PRN (18:27)
[2018-10-21] MEDS ORDERED: METHADONE HCL 10 MG TABLET PO ONE (18:49)
[2018-10-21] MEDS ORDERED: METHADONE 80 MG, METHADONE 10 MG PO ONE (19:15)
[2018-10-21] MEDS ORDERED: METHADONE HCL 10 MG TABLET ONE (19:35)
[2018-10-21] MEDS ORDERED: METHADONE HCL 40 MG DISPERSABLE TABLET ONE (19:36)
[2018-10-21] MEDS: diazePAM 5 MG TABLET PO SCH (22:17)
[2018-10-21] MEDS: THIAMINE HCL 100 MG TABLET (FP) PO SCH (22:17)
[2018-10-21] MEDS: NICOTINE POLACRILEX 2 MG GUM BUC PRN (23:12)
[2018-10-21] MEDS: MELATONIN 5 MG TABLETS PO PRN (23:13)
[2018-10-22] MEDS ORDERED: METHADONE HCL 40 MG DISPERSABLE TABLET ONE (04:38)
[2018-10-22] MEDS ORDERED: METHADONE HCL 10 MG TABLET ONE (04:38)
[2018-10-22] MEDS: diazePAM 5 MG TABLET PO SCH ×3 (05:46→22:14)
[2018-10-22] MEDS: METHADONE 80 MG, METHADONE 10 MG PO SCH (05:46)
[2018-10-22] MEDS ORDERED: METHADONE HCL 10 MG TABLET PO SCH (06:00)
--- NOTE | 2018-10-22 08:28 | CONSULT ---
[facility] Psychiatric Consult - Data Date of interview: 10/22/18 Admission source: Self-referred Identifying data: Mr Abreu is a 33 years old single , father of 2 children, unemployed with no source of income, living with family seeking alcohol, opioid, benzodiazepine and amphetamine Substance Abuse History: Reports history of alcohol, heroin, xanax and crystal meth use. Refer to addiction counselor's note for further information Medical History: Significant for history of withdrawal seizure, surgeries for fracture of nose and repair of ligament left shoulder. Patient is on methadone 90 mg/day from [facility]. Psychiatric History: Reports that his first psychiatric contact was in 2000 when his mother . Claims he saw a psychiatrist, diagnosed with depression and anxiety and started on Xanax. Reports that he took medication for 5 years. Currently his psychotropic medications is prescribed by his family physician. He is currently prescribed Wellbutrin XL 450 mg/day, Gabapentin 800 mg/qid, Vistaril 100 mg/hs and Clonidine 0.1 mg/bid. External medication history shows scripts from Dr Stuart for Wellbutrin XL 300 mg/day#30, Wellbutrin XL 150 mg/day#30, Gababentin 800 mg/qid#56, Effexoer ER 150 mg/day#30, Vistaril 50 mg/hs#30 filled at [facility] pharmacy on 09/12/18. When confronted about above, he said that he was as at [facility] for rehab. He also said that he no longer takes Effexor. Reports one previous psychiatric hospitalization at [facility] in [place] in 2018 due to psychosis induced Amphetamone accidental overdose. Denies previous suicidal attempt. At present, denies depressive and anxiety symptoms. S/H ideations. However, reports sleeping poorly Physical/Sexual Abuse/Trauma History: Denies history of emotional, physical and sexual abuse as well as DV relationship. No service Additional Comment: Reports history of 3 previous arrests including one felony convictiom. Reports being on probation Mental Status Exam - Mental Status Exam Alert and Oriented to: Time, Person Cognitive Function: Fair Patient Appearance: Well Groomed Mood: Anxious Affect: Appropriate Patient Behavior: Cooperative Speech Pattern: Clear Voice Loudness: Normal Thought Process: Intact, Goal Oriented Hallucinations: Denies Suicidal Ideation: Denies Homicidal Ideation: Denies Insight/Judgement: Poor Sleep: Poorly Appetite: Good Muscle strength/Tone: Normal Gait/Station: Normal Psychiatric Findings - Problem List ([place] 1, 2,3) (1) Anxiety disorder Current Visit: No Status: Chronic (2) Substance-induced anxiety disorder Current Visit: Yes Status: Acute (3) Substance-induced sleep disorder Current Visit: Yes Status: Acute (4) Sedative, hypnotic or anxiolytic dependence with withdrawal, uncomplicated Current Visit: No Status: Acute (5) Amphetamine dependence Current Visit: No Status: Acute (6) Alcohol abuse Current Visit: No Status: Acute (7) Opioid dependence on agonist therapy Current Visit: No Status: Chronic (8) Drug withdrawal seizure Current Visit: No Status: Resolved (9) Hepatitis C Current Visit: Yes Status: Resolved - Initial Treatment Plan Initial Treatment Plan: 1) Continue Wellbutrin XL 450 mg po daily, Gabapentin 800 mg po QID. 2) Start Vistaril 50 mg po Q 4hrs prn for anxiety. 3) Continue inpatient detoxification
[2018-10-22] MEDS: diazePAM 5 MG TABLET PO PRN ×2 (09:16→17:39)
[2018-10-22] MEDS: PRENATAL VITAMINS W/ FOLIC ACID TABLET (FP) PO SCH (10:04)
[2018-10-22] MEDS: GABAPENTIN 400 MG CAPSULE (FP) PO SCH ×4 (10:04→22:14)
[2018-10-22] MEDS: NICOTINE POLACRILEX 2 MG GUM BUC PRN ×2 (10:06→19:04)
[2018-10-22 11:18] LABS: ALBUMIN 3.2 g/dl (3.4-5.0); BILIRUBIN,TOTAL 0.3 mg/dL (0.2-1); CALCIUM 8.1 mg/dL (8.5-10.1); CREATININE 0.8 mg/dL (0.55-1.3); POTASSIUM 3.7 mmol/L (3.5-5.1); TOT PROT 5.9 g/dl (6.4-8.2)
[2018-10-22 11:50] LABS: HEMATOCRIT 39.2 % (35.4-49); HEMOGLOBIN 13.2 GM/dL (11.7-16.9); MCH 28.5 pg (25.7-33.7); MCHC 33.7 g/dl (32.0-35.9); MEAN CELL VOLUME 84.4 fl (80-96); MEAN PLT VOLUME 7.9 fl (7.5-11.1); PLATELET COUNT 196 K/MM3 (134-434); RBC 4.64 M/mm3 (4.00-5.60); RDW 13.3 % (11.9-15.9); WHITE BLOOD COUNT 3.2 K/mm3 (4.0-10.0)
[2018-10-22] MEDS: hydrOXYzine PAMOATE 50 MG CAPSULE (FP) PO PRN ×2 (12:12→22:15)
--- NOTE | 2018-10-22 15:23 | PN ---
S CIWA - CIWA Score Nausea/Vomitin-No Nausea/No Vomiting Muscle Tremors: 3 Anxiety: 4-Mod. Anxious/Guarded Agitation: 3 Paroxysmal Sweats: 2 Orientation: 0-Oriented Tacttile Disturbances: 1-Very Mild Itch/Numbness Auditory Disturbances: 0-None Visual Disturbances: 1-Very Mild Sensitivity Headache: 0-None Present CIWA-Ar Total Score: 14 BHS Progress Note (SOAP) Subjective: Tremors, Anxious, Sweating. Objective: PATIENT A & O X 3, OBSERVED AMBULATING ON UNIT UNASSISTED. IN NO ACUTE DISTRESS. 10/22/18 15:26 Vital Signs Temperature 96.6 F L 10/22/18 13:29 Pulse Rate 65 10/22/18 13:29 Respiratory Rate 18 10/22/18 13:29 Blood Pressure 127/72 10/22/18 13:29 O2 Sat by Pulse Oximetry (%) Laboratory Tests 10/22/18 10/22/18 10/22/18 07:00 07:00 07:00 WBC 3.2 L RBC 4.64 Hgb 13.2 Hct 39.2 D MCV 84.4 MCH 28.5 MCHC 33.7 RDW 13.3 Plt Count 196 D MPV 7.9 Sodium 140 Potassium 3.7 Chloride 105 Carbon Dioxide 32 Anion Gap 3 L BUN 8.0 Creatinine 0.8 Est GFR (CKD-EPI)AfAm 136.03 Est GFR (CKD-EPI)NonAf 117.37 Random Glucose 92 Calcium 8.1 L Total Bilirubin 0.3 AST 37 ALT 82 H Alkaline Phosphatase 104 Total Protein 5.9 L Albumin 3.2 L RPR Titer Nonreactive LABS NOTED. Assessment: 10/22/18 15:27 WITHDRAWAL SYMPTOMS. ELEVATED ALT LEVEL. Plan: CONTINUE DETOX. INCREASE DAILY PO WATER INTAKE.
[2018-10-22] MEDS: MELATONIN 5 MG TABLETS PO PRN (22:14)
[2018-10-22] MEDS: THIAMINE HCL 100 MG TABLET (FP) PO SCH (22:14)
[2018-10-23] MEDS ORDERED: METHADONE HCL 10 MG TABLET ONE (04:42)
[2018-10-23] MEDS ORDERED: METHADONE HCL 40 MG DISPERSABLE TABLET ONE (04:43)
[2018-10-23] MEDS: diazePAM 5 MG TABLET PO SCH ×2 (05:17→17:21)
[2018-10-23] MEDS: METHADONE 80 MG, METHADONE 10 MG PO SCH (05:17)
[2018-10-23] MEDS: diazePAM 5 MG TABLET PO PRN ×3 (08:48→19:00)
[2018-10-23] MEDS: PRENATAL VITAMINS W/ FOLIC ACID TABLET (FP) PO SCH (10:12)
[2018-10-23] MEDS: GABAPENTIN 400 MG CAPSULE (FP) PO SCH ×4 (10:12→22:05)
[2018-10-23] MEDS: NICOTINE POLACRILEX 2 MG GUM BUC PRN ×3 (10:14→19:00)
--- NOTE | 2018-10-23 15:00 | PN ---
S CIWA - CIWA Score Nausea/Vomitin-No Nausea/No Vomiting Muscle Tremors: None Anxiety: 3 Agitation: 1-Slight > Activity Paroxysmal Sweats: 2 Orientation: 0-Oriented Tacttile Disturbances: 0-None Auditory Disturbances: 0-None Visual Disturbances: 0-None Headache: 0-None Present CIWA-Ar Total Score: 6 BHS Progress Note (SOAP) Subjective: Sweating, Anxious (Mild). Patient reports that current Withdrawal / Detox symptoms are minimal in degree and that he feels well overall. Objective: PATIENT A & O X 3, OBSERVED AMBULATING ON UNIT UNASSISTED. IN NO ACUTE DISTRESS. 10/23/18 14:59 Vital Signs Temperature 98.2 F 10/23/18 13:26 Pulse Rate 101 H 10/23/18 13:26 Respiratory Rate 18 10/23/18 13:26 Blood Pressure 125/75 10/23/18 13:26 O2 Sat by Pulse Oximetry (%) Laboratory Tests 10/22/18 10/22/18 10/22/18 07:00 07:00 07:00 WBC 3.2 L RBC 4.64 Hgb 13.2 Hct 39.2 D MCV 84.4 MCH 28.5 MCHC 33.7 RDW 13.3 Plt Count 196 D MPV 7.9 Sodium 140 Potassium 3.7 Chloride 105 Carbon Dioxide 32 Anion Gap 3 L BUN 8.0 Creatinine 0.8 Est GFR (CKD-EPI)AfAm 136.03 Est GFR (CKD-EPI)NonAf 117.37 Random Glucose 92 Calcium 8.1 L Total Bilirubin 0.3 AST 37 ALT 82 H Alkaline Phosphatase 104 Total Protein 5.9 L Albumin 3.2 L RPR Titer Nonreactive LABS NOTED. Assessment: 10/23/18 14:59 WITHDRAWAL SYMPTOMS. Plan: CONTINUE DETOX. PATIENT SCHEDULED FOR D/C FROM DETOX UNIT TOMORROW.
[2018-10-23] MEDS: hydrOXYzine PAMOATE 50 MG CAPSULE (FP) PO PRN (17:22)
[2018-10-23] MEDS: THIAMINE HCL 100 MG TABLET (FP) PO SCH (22:05)
[2018-10-23] MEDS: MELATONIN 5 MG TABLETS PO PRN (22:05)
[2018-10-24] MEDS ORDERED: METHADONE HCL 10 MG TABLET ONE (04:16)
[2018-10-24] MEDS ORDERED: METHADONE HCL 40 MG DISPERSABLE TABLET ONE (04:17)
[2018-10-24] MEDS ORDERED: diazePAM 5 MG TABLET PO ONE (06:00)
[2018-10-24] MEDS: METHADONE 80 MG, METHADONE 10 MG PO SCH (06:36)
[2018-10-24] MEDS: hydrOXYzine PAMOATE 50 MG CAPSULE (FP) PO PRN (06:40)
[2018-10-24] MEDS: NICOTINE POLACRILEX 2 MG GUM BUC PRN (08:34)
--- NOTE | 2018-10-24 08:35 | DS ---
[facility] Detox Discharge Summary Admission Date: 10/21/18 Discharge Date: 10/24/18 - History Present History: Sedative Dependence - Physical Exam Results Vital Signs: Vital Signs Temperature 96.4 F L 10/24/18 07:29 Pulse Rate 79 10/24/18 07:29 Respiratory Rate 18 10/24/18 07:29 Blood Pressure 115/60 10/24/18 07:29 O2 Sat by Pulse Oximetry (%) Pertinent Admission Physical Exam Findings: pt arrived in withdrawals Laboratory Tests 10/22/18 10/22/18 10/22/18 07:00 07:00 07:00 WBC 3.2 L RBC 4.64 Hgb 13.2 Hct 39.2 D MCV 84.4 MCH 28.5 MCHC 33.7 RDW 13.3 Plt Count 196 D MPV 7.9 Sodium 140 Potassium 3.7 Chloride 105 Carbon Dioxide 32 Anion Gap 3 L BUN 8.0 Creatinine 0.8 Est GFR (CKD-EPI)AfAm 136.03 Est GFR (CKD-EPI)NonAf 117.37 Random Glucose 92 Calcium 8.1 L Total Bilirubin 0.3 AST 37 ALT 82 H Alkaline Phosphatase 104 Total Protein 5.9 L Albumin 3.2 L RPR Titer Nonreactive pt today is feeling better aaox3 ambulating no acute distress no s/s of withdrawal sx - Treatment Hospital Course: Detox Protocol Followed, Detoxed Safely, Responded well, Discharged Condition Good, Rehab Referral Accepted Patient has Accepted a Rehab Referral to: referred to [facility] in patient rehab - Medication Discharge Medications: Ambulatory Orders Gabapentin 800 mg PO QID 08/29/18 Bupropion HCl [Wellbutrin Xl -] 450 mg PO DAILY 10/21/18 Methadone [Dolophine -] 90 mg PO DAILY 10/21/18 - Diagnosis (1) Elevated alanine aminotransferase (ALT) level Current Visit: Yes Status: Chronic (2) Substance-induced anxiety disorder Current Visit: Yes Status: Chronic (3) Substance-induced sleep disorder Current Visit: Yes Status: Acute (4) Hepatitis C Current Visit: Yes Status: Resolved Qualifiers: Viral hepatitis chronicity: chronic Hepatic coma status: without hepatic coma Qualified Code(s): B18.2 - Chronic viral hepatitis C (5) Amphetamine dependence Current Visit: No Status: Acute (6) Anxiety Current Visit: No Status: Acute (7) Elevated liver enzymes Current Visit: No Status: Acute (8) Sedative, hypnotic or anxiolytic dependence with withdrawal, uncomplicated Current Visit: Yes Status: Chronic (9) Substance-induced sleep disorder Current Visit: No Status: Acute (10) Anxiety disorder Current Visit: No Status: Chronic (11) Opioid dependence on agonist therapy Current Visit: No Status: Chronic (12) Drug withdrawal seizure Current Visit: No Status: Resolved - AMA Did Patient Leave Against Medical Advice: No
[2018-10-24] MEDS: GABAPENTIN 400 MG CAPSULE (FP) PO SCH (09:02)
[2018-10-24] MEDS: PRENATAL VITAMINS W/ FOLIC ACID TABLET (FP) PO SCH (09:02)
[2018-10-24 09:54] VITALS: BP 128/72; PULSE 98; TEMP 97.5
== END 2018-10-24 09:40 | disposition home or self-care (01) | DRG 773 ==
LOC: YASAS 12:45 → Y6N 15:33
PROVIDERS: ADMIT Surgery; ATTEND Surgery
PROC: HZ2ZZZZ Detoxification Services for Substance Abuse Treatment (ICD-10-PCS; principal; 2018-10-21)
DX: F13.230 Sedative, hypnotic or anxiolytic dependence with withdrawal, uncomplicated (principal); F15.20 Other stimulant dependence, uncomplicated; F11.20 Opioid dependence, uncomplicated; F10.10 Alcohol abuse, uncomplicated; F19.280 Other psychoactive substance dependence with psychoactive substance-induced anxiety disorder; F19.282 Other psychoactive substance dependence with psychoactive substance-induced sleep disorder; F41.9 Anxiety disorder, unspecified; R74.0 Nonspecific elevation of levels of transaminase and lactic acid dehydrogenase [LDH]; R94.5 Abnormal results of liver function studies; Z86.69 Personal history of other diseases of the nervous system and sense organs
CPT/HCPCS: 36415; 80053; 85027; 86593

== ENCOUNTER 2020-07-27 12:31 | Inpatient (IN) | payer OTHER ==
[2020-07-27 13:19] VITALS: BMI 28.5
[2020-07-27] MEDS ORDERED: BISMUTH SUBSALICYLATE 524 MG/30 ML UD PO PRN (14:19)
[2020-07-27] MEDS ORDERED: IBUPROFEN 400 MG TABLET (FP) PO PRN (14:19)
[2020-07-27] MEDS ORDERED: MENTHOL/PHENOL 1 EACH UD MM PRN (14:19)
[2020-07-27] MEDS ORDERED: ACETAMINOPHEN 325 MG TABLET (FP) PO PRN ×2 (14:19)
[2020-07-27] MEDS ORDERED: MAGNESIUM HYDROX 2400MG/30ML ORAL SUSPENSION 30 ML CUP PO PRN (14:19)
[2020-07-27] MEDS ORDERED: MAG HYDROX/AL HYDROX/SIMETH 30 ML UNIT-DOSE CUP PO PRN (14:19)
[2020-07-27] MEDS ORDERED: MAGNESIUM CITRATE 300 ML BOTTLE PO PRN (14:19)
[2020-07-27] MEDS ORDERED: ONDANSETRON *ODT* 4 MG TABLET SL PRN (14:19)
[2020-07-27] MEDS ORDERED: METHOCARBAMOL 500 MG TABLET PO PRN (14:19)
[2020-07-27] MEDS ORDERED: NALOXONE (NARCAN) HCL 4 MG/0.1 ML SPRAY NS PRN (14:19)
[2020-07-27] MEDS: NICOTINE 7 MG/24 HOURS TOPICAL PATCH TD SCH (15:13)
[2020-07-27] MEDS: PRENATAL VITAMINS W/ FOLIC ACID TABLET (FP) PO SCH (15:13)
[2020-07-27] MEDS: NICOTINE POLACRILEX 2 MG GUM BUC PRN (15:14)
[2020-07-27 17:29] LABS: HEMOGLOBIN 12.4 GM/dL (11.7-16.9); MCH 27.6 pg (25.7-33.7); MCHC 33.5 g/dl (32.0-35.9); MEAN CELL VOLUME 82.6 fl (80-96); MEAN PLT VOLUME 7.4 fl (7.5-11.1); PLATELET COUNT 279 K/MM3 (134-434); RBC 4.49 M/mm3 (4.00-5.60); WHITE BLOOD COUNT 4.4 K/mm3 (4.0-10.0)
[2020-07-27 17:36] LABS: ALBUMIN 3.8 g/dl (3.4-5.0); BLOOD UREA NITROGEN 13.2 mg/dL (7-18); CALCIUM 8.2 mg/dL (8.5-10.1)
[2020-07-27 17:40] LABS: CREATININE 0.9 mg/dL (0.55-1.3)
[2020-07-27 17:41] LABS: BILIRUBIN,TOTAL 0.2 mg/dL (0.2-1)
[2020-07-27] MEDS: diazePAM 5 MG TABLET PO SCH (17:41)
[2020-07-27] MEDS: hydrOXYzine PAMOATE 25 MG CAPSULE (FP) PO SCH (17:41)
[2020-07-28] MEDS: MELATONIN 5 MG TABLETS PO SCH ×2 (00:26→22:53)
[2020-07-28] MEDS: hydrOXYzine PAMOATE 25 MG CAPSULE (FP) PO SCH ×6 (00:26→22:53)
[2020-07-28] MEDS: THIAMINE HCL 100 MG TABLET (FP) PO SCH ×2 (00:26→22:53)
[2020-07-28] MEDS: diazePAM 5 MG TABLET PO SCH ×5 (00:27→22:53)
[2020-07-28] MEDS ORDERED: METHADONE HCL 40 MG DISPERSABLE TABLET PO SCH (09:15)
[2020-07-28] MEDS ORDERED: METHADONE HCL 40 MG DISPERSABLE TABLET ONE (09:44)
[2020-07-28] MEDS ORDERED: METHADONE HCL 10 MG TABLET ONE (09:44)
[2020-07-28] MEDS: PRENATAL VITAMINS W/ FOLIC ACID TABLET (FP) PO SCH (10:20)
[2020-07-28] MEDS: METHADONE 200 MG, METHADONE 10 MG PO SCH (10:21)
[2020-07-28] MEDS: NICOTINE 7 MG/24 HOURS TOPICAL PATCH TD SCH (10:23)
[2020-07-28] MEDS: NICOTINE POLACRILEX 2 MG GUM BUC PRN (10:23)
[2020-07-28] MEDS: diazePAM 5 MG TABLET PO PRN (15:28)
[2020-07-29] MEDS ORDERED: METHADONE HCL 10 MG TABLET ONE (04:10)
[2020-07-29] MEDS ORDERED: METHADONE HCL 40 MG DISPERSABLE TABLET ONE (04:10)
[2020-07-29] MEDS: diazePAM 5 MG TABLET PO SCH ×3 (05:23→22:44)
[2020-07-29] MEDS: hydrOXYzine PAMOATE 25 MG CAPSULE (FP) PO SCH ×5 (05:23→22:43)
[2020-07-29] MEDS: METHADONE 200 MG, METHADONE 10 MG PO SCH (05:24)
[2020-07-29] MEDS: NICOTINE 7 MG/24 HOURS TOPICAL PATCH TD SCH (11:15)
[2020-07-29] MEDS: PRENATAL VITAMINS W/ FOLIC ACID TABLET (FP) PO SCH (11:15)
[2020-07-29] MEDS: NICOTINE POLACRILEX 2 MG GUM BUC PRN (11:17)
[2020-07-29] MEDS: diazePAM 5 MG TABLET PO PRN (17:54)
[2020-07-29] MEDS: THIAMINE HCL 100 MG TABLET (FP) PO SCH (22:43)
[2020-07-29] MEDS: MELATONIN 5 MG TABLETS PO SCH (22:44)
[2020-07-30] MEDS ORDERED: METHADONE HCL 10 MG TABLET ONE (03:58)
[2020-07-30] MEDS ORDERED: METHADONE HCL 40 MG DISPERSABLE TABLET ONE (03:58)
[2020-07-30] MEDS: METHADONE 200 MG, METHADONE 10 MG PO SCH (05:26)
[2020-07-30] MEDS: diazePAM 5 MG TABLET PO SCH ×2 (06:41→17:36)
[2020-07-30] MEDS: hydrOXYzine PAMOATE 25 MG CAPSULE (FP) PO SCH ×5 (06:41→22:38)
[2020-07-30 10:11] LABS: SARS-CoV-2 NAA Not Detected (Not Detected)
[2020-07-30] MEDS: PRENATAL VITAMINS W/ FOLIC ACID TABLET (FP) PO SCH (10:35)
[2020-07-30] MEDS: NICOTINE 7 MG/24 HOURS TOPICAL PATCH TD SCH (10:35)
[2020-07-30] MEDS: MELATONIN 5 MG TABLETS PO SCH (22:38)
[2020-07-30] MEDS: THIAMINE HCL 100 MG TABLET (FP) PO SCH (22:38)
[2020-07-30] MEDS: NICOTINE POLACRILEX 2 MG GUM BUC PRN (22:39)
[2020-07-31] MEDS ORDERED: METHADONE HCL 10 MG TABLET ONE (03:42)
[2020-07-31] MEDS ORDERED: METHADONE HCL 40 MG DISPERSABLE TABLET ONE (03:42)
[2020-07-31] MEDS: METHADONE 200 MG, METHADONE 10 MG PO SCH (05:51)
[2020-07-31] MEDS: hydrOXYzine PAMOATE 25 MG CAPSULE (FP) PO SCH (05:52)
[2020-07-31] MEDS ORDERED: diazePAM 5 MG TABLET PO ONE (06:00)
[2020-07-31 09:51] VITALS: BP 101/64; PULSE 78; TEMP 97.3
== END 2020-07-31 10:00 | disposition home or self-care (01) | DRG 773 ==
LOC: YASAS 12:31 → Y3N 13:53
PROVIDERS: ADMIT Allergy & Immunology; ATTEND Allergy & Immunology
PROC: HZ2ZZZZ Detoxification Services for Substance Abuse Treatment (ICD-10-PCS; principal; 2020-07-27)
DX: F13.230 Sedative, hypnotic or anxiolytic dependence with withdrawal, uncomplicated (principal); F11.20 Opioid dependence, uncomplicated; F15.20 Other stimulant dependence, uncomplicated; F14.10 Cocaine abuse, uncomplicated; F12.10 Cannabis abuse, uncomplicated; F17.210 Nicotine dependence, cigarettes, uncomplicated; F19.280 Other psychoactive substance dependence with psychoactive substance-induced anxiety disorder; R74.8 Abnormal levels of other serum enzymes; Z86.19 Personal history of other infectious and parasitic diseases; Z86.69 Personal history of other diseases of the nervous system and sense organs; Z98.890 Other specified postprocedural states
CPT/HCPCS: 36415; 80053; 82310; 85027; 86780; C9803; U0003; U0005

== ENCOUNTER 2021-06-24 13:52 | Inpatient (IN) | payer OTHER ==
[2021-06-24 14:41] VITALS: BMI 28.8
[2021-06-24] MEDS ORDERED: ACETAMINOPHEN 325 MG TABLET (FP) PO PRN ×2 (16:31)
[2021-06-24] MEDS ORDERED: DICYCLOMINE HCL 10 MG CAPSULE PO PRN (16:31)
[2021-06-24] MEDS ORDERED: BISMUTH SUBSALICYLATE 524 MG/30 ML PO PRN (16:31)
[2021-06-24] MEDS ORDERED: BENZOCAINE/MENTHOL (CHLORASEPTIC ) LOZENGE MM PRN (16:31)
[2021-06-24] MEDS ORDERED: IBUPROFEN 400 MG TABLET (FP) PO PRN (16:31)
[2021-06-24] MEDS ORDERED: ONDANSETRON *ODT* 4 MG TABLET SL PRN (16:31)
[2021-06-24] MEDS ORDERED: MAG HYDROX/AL HYDROX/SIMETH 30 ML UNIT-DOSE CUP PO PRN (16:31)
[2021-06-24] MEDS ORDERED: MAGNESIUM HYDROX 2400MG/30ML ORAL SUSPENSION 30 ML CUP PO PRN (16:31)
[2021-06-24] MEDS ORDERED: METHOCARBAMOL 500 MG TABLET PO PRN (16:31)
[2021-06-24] MEDS ORDERED: NICOTINE 10 MG CARTRIDGE (INHALER) IH PRN (16:31)
[2021-06-24] MEDS ORDERED: LOPERAMIDE HCL 2 MG CAPSULE PO PRN (16:31)
[2021-06-24] MEDS ORDERED: MAGNESIUM CITRATE 300 ML BOTTLE PO PRN (16:31)
[2021-06-24] MEDS: hydrOXYzine PAMOATE 25 MG CAPSULE (FP) PO SCH ×2 (19:10→22:42)
[2021-06-24] MEDS: MELATONIN 5 MG TABLETS PO SCH (22:41)
[2021-06-24] MEDS: THIAMINE HCL 100 MG TABLET (FP) PO SCH (22:42)
[2021-06-25] MEDS: hydrOXYzine PAMOATE 25 MG CAPSULE (FP) PO SCH ×5 (07:23→23:08)
[2021-06-25] MEDS: NICOTINE POLACRILEX 2 MG GUM BUC PRN ×2 (08:42→20:07)
[2021-06-25] MEDS: PRENATAL VITAMINS W/ FOLIC ACID TABLET (FP) PO SCH (10:46)
[2021-06-25] MEDS ORDERED: diazePAM 5 MG TABLET PO PRN (13:04)
[2021-06-25 13:40] LABS: BILIRUBIN,TOTAL 0.3 mg/dL (0.2-1); BLOOD UREA NITROGEN 10.6 mg/dL (7-18); CALCIUM 7.5 mg/dL (8.5-10.1); CREATININE 0.9 mg/dL (0.55-1.3)
[2021-06-25] MEDS ORDERED: methaDONE HCL 10 MG TABLET PO ONE (14:15)
[2021-06-25] MEDS: diazePAM 5 MG TABLET PO SCH ×2 (17:44→23:08)
[2021-06-25] MEDS: THIAMINE HCL 100 MG TABLET (FP) PO SCH (23:08)
[2021-06-25] MEDS: MELATONIN 5 MG TABLETS PO SCH (23:08)
[2021-06-26] MEDS: diazePAM 5 MG TABLET PO SCH ×2 (05:58→10:39)
[2021-06-26] MEDS: hydrOXYzine PAMOATE 25 MG CAPSULE (FP) PO SCH ×2 (05:58→09:29)
[2021-06-26 06:54] VITALS: BP 107/63; PULSE 62; TEMP 97.5
[2021-06-26] MEDS: PRENATAL VITAMINS W/ FOLIC ACID TABLET (FP) PO SCH (09:29)
[2021-06-26 12:05] LABS: HEMATOCRIT 35.2 % (35.4-49); HEMOGLOBIN 11.8 GM/dL (11.7-16.9); MCH 27.8 pg (25.7-33.7); MCHC 33.6 g/dl (32.0-35.9); MEAN CELL VOLUME 82.9 fl (80-96); MEAN PLT VOLUME 8.2 fl (7.5-11.1); PLATELET COUNT 197 10^3/uL (134-434); RBC 4.25 M/mm3 (4.00-5.60); WHITE BLOOD COUNT 2.6 K/mm3 (4.0-10.0)
[2021-06-27] MEDS ORDERED: diazePAM 5 MG TABLET PO SCH (06:00)
[2021-06-28] MEDS ORDERED: diazePAM 5 MG TABLET PO SCH (06:00)
[2021-06-29] MEDS ORDERED: diazePAM 5 MG TABLET PO ONE (06:00)
== END 2021-06-26 09:46 | disposition left against medical advice (07) | DRG 770 ==
LOC: YASAS 13:52 → Y3N 17:32
PROVIDERS: ADMIT Allergy & Immunology; ATTEND Allergy & Immunology
PROC: HZ2ZZZZ Detoxification Services for Substance Abuse Treatment (ICD-10-PCS; principal; 2021-06-24)
DX: F13.230 Sedative, hypnotic or anxiolytic dependence with withdrawal, uncomplicated (principal); F11.20 Opioid dependence, uncomplicated; F17.210 Nicotine dependence, cigarettes, uncomplicated; F41.9 Anxiety disorder, unspecified; F32.A Depression, unspecified; Z87.898 Personal history of other specified conditions
CPT/HCPCS: 36415; 80053; 85027; 86780; 87811; 93005; 93010; C9803-CS; U0003; U0005